=== PATIENT | female | born 1945 | race Caucasian/White ===

== ENCOUNTER 2017-02-12 19:59 | Inpatient (IN) | payer MEDICARE, OTHER ==
[~2017-02-12] VITALS: Ht 165.1 cm; Wt 63.7 kg
[2017-02-12 20:50] LABS: BASOPHIL 0.3 % (0-2); EOSINOPHIL 0.9 % (0-7); HCT 38.9 % (37.0-47.0); HGB 13.1 g/dl (12.5-16.0); LYMPHOCYTE 11.2 % (15-48); MCH 28.2 pg (25.0-31.0); MCHC 33.7 g/dL (32.0-36.0); MCV 83.7 fL (78.0-100.0); MONOCYTE 10.8 % (0-12); MPV 9.8 fL (6.0-9.5); NEUTROPHIL 76.8 % (41-80); PLT 267 K/uL (150-400); RBC 4.65 M/uL (4.20-5.40); RDW 14.8 % (11.5-14.0); WBC 11.6 K/uL (4.0-10.5)
[2017-02-12 20:52] LABS: BILIRUBIN NEGATIVE (NEGATIVE); BLOOD NEGATIVE Ery/uL (NEGATIVE); CLARITY CLEAR (CLEAR); COLOR YELLOW (YELLOW); GLUCOSE (U) NORMAL (NORMAL); KETONE (U) NEGATIVE (NEGATIVE); LEUKOCYTES NEGATIVE Leu/uL (NEGATIVE); NITRITE NEGATIVE (NEGATIVE); PROTEIN NEGATIVE (NEGATIVE); pH 6.5 (5.0-9.0)
[2017-02-12 21:03] LABS: INR 1.02 (0.9-1.2); PTT 22.8 SECONDS (23.2-31.4)
[2017-02-12 21:07] LABS: BAND 8 % (0-10); LYMPHOCYTE(M) 18 % (15-48); MONOCYTE(M) 2 % (0-12); NEUTROPHILS(M) 72 % (41-80); TOTAL CELL COUNT 100
[2017-02-12 21:08] LABS: LACTIC ACID 1.3 mmol/L (0.5-2.2); PLATELET ESTIMATE NORMAL; PLATELET MORPHOLOGY NORMAL
[2017-02-12 21:11] LABS: BILIRUBIN - TOTAL 0.3 mg/dL (0.1-1.0); CREATININE 1.2 mg/dL (0.5-1.0); GLOBULIN (CALCULATION) 3.6 g/dL (2.2-4.2); POTASSIUM 3.8 mmol/L (3.5-5.1); TOTAL PROTEIN 7.6 g/dL (6.4-8.3)
[2017-02-13 05:54] LABS: BASOPHIL 0.1 % (0-2); EOSINOPHIL 0.5 % (0-7); HCT 34.3 % (37.0-47.0); HGB 11.6 g/dl (12.5-16.0); LYMPHOCYTE 10.6 % (15-48); MCH 28.4 pg (25.0-31.0); MCHC 33.8 g/dL (32.0-36.0); MCV 83.9 fL (78.0-100.0); MONOCYTE 13.7 % (0-12); MPV 9.7 fL (6.0-9.5); NEUTROPHIL 75.1 % (41-80); PLT 215 K/uL (150-400); RBC 4.09 M/uL (4.20-5.40); RDW 14.5 % (11.5-14.0); WBC 9.2 K/uL (4.0-10.5)
[2017-02-13 06:17] LABS: INR 1.1 (0.9-1.2); PROTHROMBIN TIME 13.8 SECONDS (11.7-14.0); PTT 27.2 SECONDS (23.2-31.4)
[2017-02-13 06:20] LABS: ALBUMIN 3.1 g/dL (3.4-4.8); BILIRUBIN - TOTAL 0.3 mg/dL (0.1-1.0); GLOBULIN (CALCULATION) 2.5 g/dL (2.2-4.2); MAGNESIUM 2.16 mg/dL (1.40-2.10); PHOSPHORUS 3.7 mg/dL (2.7-4.5); POTASSIUM 4.1 mmol/L (3.5-5.1); TOTAL PROTEIN 5.6 g/dL (6.4-8.3)
[2017-02-14 04:02] LABS: HCT 31.1 % (37.0-47.0); HGB 10.2 g/dl (12.5-16.0); MCH 27.8 pg (25.0-31.0); MCHC 32.8 g/dL (32.0-36.0); MCV 84.7 fL (78.0-100.0); MPV 9.4 fL (6.0-9.5); RBC 3.67 M/uL (4.20-5.40); RDW 14.7 % (11.5-14.0); WBC 6.3 K/uL (4.0-10.5)
[2017-02-14 04:24] LABS: POTASSIUM 3.8 mmol/L (3.5-5.1)
== END 2017-02-14 12:36 | disposition home or self-care (01) | DRG 683 ==
LOC: FER 19:59 → FMS 02-13 00:19
PROVIDERS: Emergency Medicine; Internal Medicine; ADMIT Internal Medicine
DX: N17.9 Acute kidney failure, unspecified (principal); E87.1 Hypo-osmolality and hyponatremia; E11.9 Type 2 diabetes mellitus without complications; K52.89 Other specified noninfective gastroenteritis and colitis; E86.0 Dehydration; I10 Essential (primary) hypertension; E78.5 Hyperlipidemia, unspecified; M81.0 Age-related osteoporosis without current pathological fracture; F17.210 Nicotine dependence, cigarettes, uncomplicated; Z90.710 Acquired absence of both cervix and uterus; Z83.3 Family history of diabetes mellitus
CPT/HCPCS: 36415; 74000; 80048; 80053; 81003; 82962; 83605; 83690; 83735; 84100; 84484; 85025; 85610; 85730; 87040; 87088; 87493; 93005; 94010; C9113; J1170; J1956; J2270; J2405

== ENCOUNTER 2020-11-02 18:02 | Emergency (ER) | payer MEDICARE, OTHER ==
[~2020-11-02 18:02] MED LIST: ACETAMINOPHEN500 M1 PO; CLEOCIN300 MG PO; LOSARTAN-HCTZ1 EAC2 PO; NEOSPORIN OIN14.2 GM TOP; PRAVACHOL20 MG PO; PRILOSEC20 MG PO
[2020-11-02 20:10] LABS: BASOPHIL 0.3 % (0-2); EOSINOPHIL 0.5 % (0-7); HCT 37.5 % (37.0-47.0); HGB 12.7 g/dl (12.5-16.0); LYMPHOCYTE 8.7 % (15-48); MCH 30.8 pg (25.0-31.0); MCHC 33.9 g/dL (32.0-36.0); MONOCYTE 7.8 % (0-12); MPV 10.3 fL (6.0-9.5); NEUTROPHIL 81.9 % (41-80); NRBC 0; PLT 215 K/uL (150-400); RBC 4.12 M/uL (4.20-5.40); RDW 13.2 % (11.5-14.0); WBC 11.8 K/uL (4.0-10.5)
[2020-11-02 20:22] LABS: ALBUMIN 3.4 g/dL (3.4-5.0); BILIRUBIN - TOTAL 0.4 mg/dL (0.2-1.0); BUN/CREAT RATIO (CALC) 14.1 RATIO; CREATININE 1.56 mg/dL (0.51-0.95); GLOBULIN (CALCULATION) 3.6 g/dL; POTASSIUM 3.4 mmol/L (3.5-5.1)
[2020-11-02] MEDS ORDERED: MIRALAX 238GM238 GM PO (21:37)
[2020-11-02] MEDS ORDERED: AUGMENTIN 875-1 EACH PO (21:37)
== END 2020-11-02 22:11 | disposition home or self-care (01) ==
LOC: FER 18:02
PROVIDERS: Emergency Medicine Emergency Medical Services
DX: K59.00 Constipation, unspecified (principal); K57.92 Diverticulitis of intestine, part unspecified, without perforation or abscess without bleeding; K42.9 Umbilical hernia without obstruction or gangrene; I10 Essential (primary) hypertension; E11.9 Type 2 diabetes mellitus without complications; K21.9 Gastro-esophageal reflux disease without esophagitis; F17.210 Nicotine dependence, cigarettes, uncomplicated; Z85.118 Personal history of other malignant neoplasm of bronchus and lung; Z87.09 Personal history of other diseases of the respiratory system; Z88.5 Allergy status to narcotic agent
CPT/HCPCS: 36415; 80053; 83605; 85025